=== PATIENT | female | born 1965 | race Caucasian/White ===

== ENCOUNTER 2023-10-26 16:21 | Emergency (ER) | payer MEDICAID ==
--- NOTE | 2023-10-26 17:02 | ED Physician Documentation ---
PD HPI OPHTHO - Stated complaint Stated Complaint: R EYE PX - Chief complaint Chief Complaint: Heent - Additional information Additional information: 58-year-old female presents emergency department for right eye erythema and purulent drainage. Patient says that she has been struggling with her right eye having clear drainage for some time now waking up with it crusted over the morning normally it has not been pink she saw urgent care provider who did not prescribe her drops about a month or 2 ago and now comes in with erythema purulent drainage that started yesterday and has increased in severity. She describes as very irritated and slightly itchy and woke up with it completely crusted over. PD PAST MEDICAL HISTORY - Past Medical History Past Medical History: No - Past Surgical History General: Cholecystectomy Ortho: Other /MARKETING ASSISTANT MANAGER: Hysterectomy - Allergies Allergies/Adverse Reactions: Allergies Allergy/AdvReac Type Severity Reaction Status Date / Time No Known Drug Allergies Allergy Verified 10/26/23 16:37 - Social History Does the pt smoke?: No Smoking Status: Never smoker Does the pt drink ETOH?: No Does the pt have substance abuse?: No - Immunizations Immunizations are current?: Yes PD ED PE NORMAL - Vitals Vital signs reviewed: Yes - General General: Alert and oriented X 3, No acute distress, Well developed/nourished PD ED PE EXPANDED - Eyes Eyes: Visual acuity - see nn, PERRL, Right eye, Normal eyelids, Exudate, Normal corneas, Other (right eye IOP 18). No: Unequal pupils, Conj/sclera FB, Subconj hemorrhage, Scleral icterus, Corneal FB, Corneal abrasion, Corneal ulcer, Fluorescein uptake, Anterior chambers clear, Ant chamber cells/flare Results - Vitals Vitals: Vital Signs - 24 hr 10/26/23 10/26/23 16:34 19:04 Temperature 36.4 C L 36.5 C Heart Rate 98 79 Respiratory 18 16 Rate Blood Pressure 168/88 H 159/94 H O2 Saturation 97 99 Oxygen O2 Source Room air PD Medical Decision Making - ED course ED course: 58-year-old female presents emergency department for right eye irritation with purulent drainage. No recent eye trauma or suspected microtrauma (dust, sand, etc). Negative Terence sign, no sign of corneal abrasion/ulcer. No significant photophobia. IOP is 18 so doubt acute angle closure glaucoma. Given history and exam I have low suspicion for globe rupture, uveitis, HSV keratitis, Endopthalmitist, Foreign Body. Patient likely has Bacterial conjunctivitis Given the amount of purulent drainage that was coming from her right eye. She was started on polymyxin B/trimeth antibiotic drops here in the emergency department prescription sent to her preferred pharmacy patient is told to follow-up with ophthalmology outpatient for further evaluation and was given a couple different ophthalmology clinics contact information to follow-up with them. Departure - Departure Disposition: 01 Home, Self Care Clinical Impression: Conjunctivitis, right eye Instructions: Red Eye Causes, Conjunctivitis Comments: Thank you for trusting us with your care. I believe that you are experiencing conjunctivitis but I do think you benefit from an ophthalmology follow-up given that you have been experiencing the symptoms for such a long time. We have started you on eyedrops here in the emergency department I want you to apply 1 drop every 3 hours for the next 7 to 10 days unless otherwise recommended by an softball winder. Attached below are the ophthalmology phone numbers for here in [facility] as well as [place]. I did speak with an softball winder at [facility] in [place] who did say that they would be able to most likely get you in for a same-day appointment tomorrow if you call them first thing in the morning. Their phone number is [phone] you can also see if [facility] here in [place] is able to get you in for a same-day appointment as well. [facility] in [place] Forms: PCP List Discharge Date/Time: 10/26/23 19:05
[2023-10-26] MEDS: PROPARACAINE 0.5% OPHTH DROPS 15 ML EACHEYE STA (17:40)
[2023-10-26] MEDS: POLYMYXIN B/TRIMETH OPHTH DROPS RIGHTEYE STA (19:00)
[2023-10-26 19:11] VITALS: BP 159/94; O2SAT 99
== END 2023-10-26 19:05 | disposition home or self-care (01) ==
LOC: ED 16:21
DX: H10.31 Unspecified acute conjunctivitis, right eye (principal)
CPT/HCPCS: 99283; 99284; A9270; J3490